=== PATIENT | male | born 1985 | race Caucasian/White ===

== ENCOUNTER 2017-05-28 01:09 | Emergency (ER) | payer SELFPAY ==
--- NOTE | 2017-05-28 01:23 | EDPHY ---
H & P Stated Complaint: psychosis Source: Patient, EMS - Personal History Current Tetanus/Diphtheria Vaccine: Unsure - Medical/Surgical History Hx Asthma: No Hx Chronic Respiratory Disease: No Hx Diabetes: No Hx Cardiac Disease: No Hx Renal Disease: No Hx Cirrhosis: No Hx Alcoholism: No Hx HIV/AIDS: No Hx Splenectomy or Spleen Trauma: No Other PMH: denies - Social History Smoking Status: Current some day smoker HPI/ROS: HPI CHIEF COMPLAINT: Paranoid M1 hold from [facility] HISTORY OF PRESENT ILLNESS: Patient is otherwise healthy 31-year-old male no significant medical history does not take any daily medications he denies having mental illness. He presents emergency room on M1 hold from the [facility]. It is reported that he is delusional and paranoid. He just was released at 7:00 p.m. last night from snf. He states 24 hours in snf. He reports to me that you was in snf for possession of drugs methamphetamine. Additionally reports that he did methamphetamine earlier prior to going snf. Here in the emergency room he denies wanting to kill himself or hurt himself but he does have paranoia. Past Medical History: Denies medical history Past Surgical History: No recent surgery Social History: Methamphetamine use, denies other illicit drugs. Lives in [place]. Unemployed. Family History: Noncontributory ROS REVIEW OF SYSTEMS: A comprehensive 10 point review of systems is otherwise negative aside from elements mentioned in the history of present illness. Exam Constitutional appears well nontoxic, triage nursing summary reviewed, vital signs reviewed, awake/alert. Eyes normal conjunctivae and sclera, EOMI, PERRLA. HENT normal inspection, atraumatic, moist mucus membranes, no epistaxis, neck supple/ no meningismus, no raccoon eyes. Respiratory clear to auscultation bilaterally, normal breath sounds, no respiratory distress, no wheezing. Cardiovascular rate normal, regular rhythm, no murmur, no edema, distal pulses normal. Gastrointestinal soft, non-tender, no rebound, no guarding, normal bowel sounds, no distension, no pulsatile mass. Genitourinary no CVA tenderness. Musculoskeletal no midline vertebral tenderness, full range of motion, no calf swelling, no tenderness of extremities, no meningismus, good pulses, neurovascularly intact. Skin pink, warm, & dry, no rash, skin atraumatic. Neurologic awake, alert and oriented x 3, AAOx3, moves all 4 extremities equally, motor intact, sensory intact, CN II-XII intact, normal cerebellar, normal vision, normal speech. Psychiatric paranoid Heme/Lymph/Immune no lymphadenopathy. Differential Diagnosis: Includes but is not limited to in a particular order acute psychosis, methamphetamine abuse, drug intoxication, bipolar disorder, schizophrenia Medical Decision Making: Plan for this patient medical clearance, drug screen. Patient on M1 hold prior to arrival. This could possibly be methamphetamine induced acute psychosis. Re-evaluation: 521: Patient is sleeping. No acute events overnight. Patient positive for methamphetamine. Patient is on a M1 hold for paranoia delusional thoughts. Most likely methamphetamine induced. He will need mental health evaluation. He has signed over at 7:00 a.m. shift change to Dr. Hickman. (Patrick Layne) Constitutional: Initial Vital Signs Temperature (C) 36.9 C 05/28/17 01:19 Heart Rate 87 05/28/17 01:19 Respiratory Rate 18 05/28/17 01:19 Blood Pressure 156/98 H 05/28/17 01:19 O2 Sat (%) 93 05/28/17 01:19 O2 Delivery Mode Room Air Allergies/Adverse Reactions: No Known Allergies Allergy (Unverified 05/28/17 01:25) Home Medications: Medication Instructions Recorded NK [No Known Home Meds] 05/28/17 Medical Decision Making Other Provider: I assumed care of the patient at 7:00 a.m. pending psychiatric disposition. The patient remained stable on my shift. I reviewed the patient's chart I re-evaluated the patient at 2:45 p.m.. The patient is sleeping comfortably in the room and arousable. He is not delusional or paranoid. The patient is a reliable historian and states that he was using methamphetamine 2 days ago. This resulted in acute confusion and paranoia. The patient has no history of any other psychiatric diagnoses. The patient is able to articulate his address as well as plan to take a bus home. He is not suicidal, homicidal or gravely disabled. He does contract for safety. I have vacated is 72 hour mental health hold at 2:45 p.m.. (Ken Hickman) - Data Points Laboratory Results: Laboratory Results 05/28/17 01:37 05/28/17 01:37 Medications Given: Discontinued Medications Olanzapine (Olanzapine) 5 mg PO ONCE ONE Stop: 05/28/17 02:19 Last Admin: 05/28/17 02:49 Dose: 5 mg Departure - Departure Disposition: Home, Routine, Self-Care Clinical Impression: Paranoid, Methamphetamine abuse Condition: Good Instructions: Methamphetamine Abuse (ED) Additional Instructions: 1. Please [facility] if you desire assistance with your substance abuse. 2. [facility] does operate a 31/01 psychiatric crisis unit located at [address] [place] [address]. The telephone number for the 24 hour crisis center is [phone]. 3. Please return to the ED if you are feeling suicidal, having thoughts of harming yourself/others or should you feel unsafe or have worsening symptoms. Referrals: [facility] [Outside] - As per Instructions
[2017-05-28 01:45] LABS: % IMMATURE GRANULYOCYTES 0.2 % (0.0-1.1); ABSOLUTE IMMATURE GRANULOCYTES 0.02 10^3/uL (0.00-0.10); ADD DIFF? NO; ADD MORPH? NO; ADD SCAN? NO; ATYPICAL LYMPHOCYTE FLAG 0 (0-99); FRAGMENT RBC FLAG 0 (0-99); HEMATOCRIT 47.7 % (40.0-51.0); HEMOGLOBIN 16.8 g/dL (13.7-17.5); LEFT SHIFT FLG 0 (0-99); LIPEMIA HEMOLYSIS FLAG 90 (0-99); MEAN CELL HEMOGLOBIN 32.8 pg (27.9-34.1); MEAN CELL HEMOGLOBIN CONCENTR. 35.2 g/dL (32.4-36.7); MEAN CELL VOLUME 93.2 fL (81.5-99.8); MEAN PLATELET VOLUME 13.1 fL (8.7-11.7); PLATELET CLUMPS FLAG 10 (0-99); PLATELET COUNT 107 10^3/uL (150-400); RED BLOOD CELL COUNT 5.12 10^6/uL (4.40-6.38); RED CELL DISTRIBUTION WIDTH 12.5 % (11.5-15.2)
[2017-05-28 02:11] LABS: ANION GAP 12 mEq/L (8-16); CALCIUM 9.6 mg/dL (8.5-10.4); CARBON DIOXIDE 27 mEq/l (22-31); CHLORIDE 103 mEq/L (97-110); CREATININE 0.8 mg/dL (0.7-1.3); ETHANOL SERUM < 10 mg/dL (0-10); GLOMERULAR FILTRATION RATE > 60; GLUCOSE 94 mg/dL (70-100); SODIUM 142 mEq/L (134-144)
[2017-05-28] MEDS ORDERED: OLANZapine 5 MG TAB PO ONE (02:18)
[2017-05-28 08:44] VITALS: RESP 16
[2017-05-28 15:17] VITALS: BP 146/86; PULSE 88; TEMP 98.2; O2SAT 97
== END 2017-05-28 15:17 | disposition home or self-care (01) ==
DX: F22 Delusional disorders (principal); F15.10 Other stimulant abuse, uncomplicated; F17.200 Nicotine dependence, unspecified, uncomplicated
CPT/HCPCS: 80305; G0480